=== PATIENT | female | born 1960 | race Caucasian/White ===

== ENCOUNTER 2017-07-28 19:58 | Emergency (ER) | payer MEDICAID | END 2017-07-28 21:11 | disposition left against medical advice (07) | LOC: D.ER 19:58 | DX: R56.9 Unspecified convulsions (principal) ==

== ENCOUNTER 2018-02-07 12:54 | Inpatient (IN) | payer MEDICARE, MEDICAID ==
[~2018-02-07] VITALS: Ht 172.7 cm; Wt 90.9 kg
--- NOTE | ~2018-02-07 | CN ---
PATIENT NAME:DAVID GARDNER MEDICAL RECORD: [id number] : 62 LOCATION:D. D.2111 ADMIT DATE: 02/07/18 ACCOUNT: [id number] CONSULTING PHYSICIAN: SAM SINHA MD REFERRING PHYSICIAN: JUAN VALERIO MD DATE OF CONSULTATION: 02/08/2018 CONSULT REQUESTING PHYSICIAN: Shannan Worthy MD REASON FOR CONSULTATION: Acute exacerbation of COPD, cough, shortness of breath. HISTORY OF PRESENT ILLNESS: Ms. Gardner is a 57-year-old very pleasant lady. She was in her usual state of health 3 days ago. She started fever, coughing, and shortness of breath; were progressively getting worse. She was wheezing. The cough was productive of white-yellow color sputum production. She has fever of 101. The patient was brought into the ER and found out she has pneumonia. REVIEW OF THE SYSTEMS: Mainly in the history of present illness. PAST MEDICAL HISTORY: 1. Seizure disorder. 2. Anxiety and depression. 3. Diabetes mellitus type 2. ALLERGY: No known drug allergy. MEDICATIONS: NuAx was reviewed. PERSONAL AND SOCIAL HISTORY: The patient is a current everyday smoker, almost 15-20 cigarettes a day. She is nondrinker. FAMILY HISTORY: Not known. PHYSICAL EXAMINATION: GENERAL: Now, the patient is lying comfortably in bed. She is not in acute distress. VITAL SIGNS: Her blood pressure is 123/75, pulse is 79, respiration is 17, temperature is 97.7, SpO2 92% on room air. HEENT: Conjunctivae are pink. Sclerae are not icteric. NECK: Neck is supple. No JVD. CHEST: The chest excursion is minimal on both sides. There is prolonged expiration with wheezing. HEART: Rhythm regular. Normal sound. No murmur. ABDOMEN: Abdomen is soft. Bowel sounds present. No hepatosplenomegaly. RECTAL: Deferred. EXTREMITIES: No cyanosis. No clubbing. No pedal edema. CENTRAL NERVOUS SYSTEM: The patient is awake and alert. There is no obvious cranial nerve abnormality. The gait was not tested. IMAGING DATA: CTA of the chest; there is no pulmonary embolism. There is mild enlarged lymph node. There is bilateral infiltrate. LABORATORY DATA: CBC; WBC is 15.9, hemoglobin 13.3, hematocrit 38.2, and the platelet count is 296. Chemistry; sodium 130, potassium 4.7, BUN is 9, CONSULT REPORT [id number] DAVID GARDNER creatinine 0.7. IMPRESSION: 1. Bilateral pneumonia, most likely community-acquired pneumonia. 2. Leukocytosis. 3. Positive D-dimer. 4. Acute exacerbation of COPD. 5. Seizure disorder. 6. Tobacco dependence syndrome. 7. Mediastinal lymphadenopathy. RECOMMENDATION: 1. Continue Levaquin IV. I will add Rocephin. 2. Methylprednisolone IV. We will slowly taper it off. 3. Start Brovana and budesonide nebulizer. 4. Albuterol and ipratropium nebulizer. 5. Mucinex DM two tablets b.i.d. 6. Followup chest radiograph and labs. The patient was counseled to quit smoking. 7. The patient will require followup CT scan of the chest after 2-3 months to ensure resolution of pneumonia as well as lymphadenopathy. Dr. Worthy, thank you for involving me in the care of Ms. Gardner. TRANSINT:[id number] Voice Confirmation ID: [id number] DOCUMENT ID: [id number] SAM SINHA MD at 1110 CC: SHANNAN WORTHY [id number] DICTATION DATE: 02/08/18 170 GRINDING AND POLISHING LABORER: 02/08/18 1830 DIS IN 02/10/18 [address] [place] [address]
[2018-02-07] MEDS ORDERED: GABAPENTIN100 MG (13:18)
[2018-02-07] MEDS ORDERED: RIOMET500 MG/5 M (13:19)
[2018-02-07 13:54] LABS: BASOPHILS 0.2 % (0-2); EOSINOPHILS 0.3 % (0-7); HEMATOCRIT 38.2 % (36.0-48.0); HEMOGLOBIN 13.3 g/dL (12-16); IMMATURE GRANULOCYTES 0.3 % (0-5); LYMPHOCYTES 13.9 % (15-50); MCH 32.6 pg (26.0-34.0); MCHC 34.8 g/dL (31.0-37.0); MCV 93.6 fL (80.0-100.0); MEAN PLATELET VOLUME 8.9 fL (7.4-10.4); MONOCYTES 9.8 % (2-11); NEUTROPHILS 75.5 % (40-80); PLATELET COUNT 296 10x3/uL (130-400); RBC 4.08 10x6/uL (4.00-5.40); RDW 14.1 % (11.5-14.5); WBC 15.9 10x3/uL (4.8-10.8)
[2018-02-07 14:27] LABS: APPEARANCE CLEAR (CLEAR); BILIRUBIN NEGATIVE (NEGATIVE); COLOR YELLOW (YELLOW); GLUCOSE NEGATIVE (NEGATIVE); KETONE NEGATIVE (NEGATIVE); NITRITE NEGATIVE (NEGATIVE); PROTEIN NEGATIVE (NEGATIVE); SPECIFIC GRAVITY 1.015 (1.005-1.020); UROBILINOGEN NORMAL (NORMAL)
[2018-02-07 14:30] LABS: ALBUMIN 3.6 g/dL (3.4-5.0); ALKALINE PHOSPHATASE 93 U/L (46-116); ALT (SGPT) 26 U/L (10-68); BILIRUBIN - TOTAL 0.47 mg/dL (0.2-1.3); CALC OSMOLALITY 265 mosm/kg (275-300); CALCIUM 8.8 mg/dL (8.5-10.1); CARBON DIOXIDE 30.4 mmol/L (21.0-32.0); CHLORIDE - SERUM 93 mmol/L (98-107); CREATININE - SERUM 0.8 mg/dL (0.6-1.3); GLUCOSE 137 mg/dL (74-106); POTASSIUM - SERUM 4.3 mmol/L (3.5-5.1); PROTEIN - SERUM 8.1 g/dL (6.4-8.2); SODIUM 132 mmol/L (136-145); UREA NITROGEN 9 mg/dL (7-18); eGFR NON AFRICAN AMERICAN 78 mL/min (90-120)
[2018-02-07 15:20] LABS: PRO BNP 41 pg/mL (0-125)
[2018-02-07 15:24] LABS: TROPONIN-I < 0.017 ng/mL (0.000-0.060)
[2018-02-07] MEDS ORDERED: ATIVAN2 MG PO (19:38)
[2018-02-07] MEDS ORDERED: HYDROCODONE-APA1 TAB PO (19:38)
[2018-02-07] MEDS ORDERED: ZANAFLEX4 MG PO (19:39)
[2018-02-07] MEDS ORDERED: GLUCOPHAGE1000 MG PO (19:39)
[2018-02-07] MEDS ORDERED: PRAVACHOL40 MG PO (19:40)
[2018-02-07] MEDS ORDERED: NEURONTIN600 MG PO (19:40)
[2018-02-07] MEDS ORDERED: AMITRIPTYLINE150 MG PO (19:40)
[2018-02-07 22:11] VITALS: BP 126/70
[2018-02-08 00:41] VITALS: BP 112/70
[2018-02-08 03:28] LABS: BASOPHILS 0.1 % (0-2); EOSINOPHILS 0 % (0-7); HEMATOCRIT 35.4 % (36.0-48.0); HEMOGLOBIN 12.2 g/dL (12-16); IMMATURE GRANULOCYTES 0.3 % (0-5); LYMPHOCYTES 8.8 % (15-50); MCH 31.9 pg (26.0-34.0); MCHC 34.5 g/dL (31.0-37.0); MCV 92.7 fL (80.0-100.0); MEAN PLATELET VOLUME 8.8 fL (7.4-10.4); NEUTROPHILS 86.8 % (40-80); PLATELET COUNT 288 10x3/uL (130-400); RBC 3.82 10x6/uL (4.00-5.40); RDW 13.7 % (11.5-14.5)
[2018-02-08 03:56] LABS: WBC 11.3 10x3/uL (4.8-10.8)
[2018-02-08 04:07] LABS: CALC OSMOLALITY 265 mosm/kg (275-300); CALCIUM 8.9 mg/dL (8.5-10.1); CARBON DIOXIDE 27.1 mmol/L (21.0-32.0); CHLORIDE - SERUM 97 mmol/L (98-107); CREATININE - SERUM 0.7 mg/dL (0.6-1.3); POTASSIUM - SERUM 4.7 mmol/L (3.5-5.1); SODIUM 130 mmol/L (136-145); UREA NITROGEN 9 mg/dL (7-18); eGFR NON AFRICAN AMERICAN > 90 mL/min (90-120)
[2018-02-08 04:12] LABS: GLUCOSE 212 mg/dL (74-106)
[2018-02-08 05:34] VITALS: BP 112/76
[2018-02-08 07:56] VITALS: BP 117/78
[2018-02-08 10:36] VITALS: BP 123/75
[2018-02-08] MEDS ORDERED: LAMICTAL100 MG PO ×2 (12:23→12:24)
[2018-02-08 12:28] VITALS: Ht 172.7 cm; Wt 90.9 kg
[2018-02-08 15:18] VITALS: BP 128/68
[2018-02-08 20:00] VITALS: BP 112/71
[2018-02-09 04:00] VITALS: BP 118/77
[2018-02-09 07:50] LABS: BASOPHILS 0.1 % (0-2); EOSINOPHILS 0 % (0-7); HEMATOCRIT 33.1 % (36.0-48.0); HEMOGLOBIN 11.4 g/dL (12-16); IMMATURE GRANULOCYTES 0.4 % (0-5); LYMPHOCYTES 9.3 % (15-50); MCH 31.7 pg (26.0-34.0); MCHC 34.4 g/dL (31.0-37.0); MCV 91.9 fL (80.0-100.0); NEUTROPHILS 86.2 % (40-80); RDW 13.8 % (11.5-14.5)
[2018-02-09 07:51] LABS: PLATELET COUNT 409 10x3/uL (130-400); WBC 16.3 10x3/uL (4.8-10.8)
[2018-02-09 08:10] LABS: ALBUMIN 2.9 g/dL (3.4-5.0); ALKALINE PHOSPHATASE 72 U/L (46-116); BILIRUBIN - TOTAL 0.24 mg/dL (0.2-1.3); CALC OSMOLALITY 264 mosm/kg (275-300); CALCIUM 8.8 mg/dL (8.5-10.1); CARBON DIOXIDE 28.1 mmol/L (21.0-32.0); CHLORIDE - SERUM 98 mmol/L (98-107); CREATININE - SERUM 0.7 mg/dL (0.6-1.3); GLUCOSE 185 mg/dL (74-106); POTASSIUM - SERUM 4.8 mmol/L (3.5-5.1); PROTEIN - SERUM 6.9 g/dL (6.4-8.2); SODIUM 130 mmol/L (136-145); UREA NITROGEN 9 mg/dL (7-18); eGFR NON AFRICAN AMERICAN > 90 mL/min (90-120)
[2018-02-09 08:11] LABS: ALT (SGPT) 35 U/L (10-68)
[2018-02-09 08:34] VITALS: BP 134/77
[2018-02-09 12:38] VITALS: BP 117/69
[2018-02-09 20:00] VITALS: BP 123/64
[2018-02-10] VITALS: BP 113/70
[2018-02-10 04:00] VITALS: BP 148/97
[2018-02-10 06:36] LABS: BASOPHILS 0.2 % (0-2); EOSINOPHILS 0 % (0-7); HEMATOCRIT 33.9 % (36.0-48.0); HEMOGLOBIN 11.6 g/dL (12-16); LYMPHOCYTES 11.3 % (15-50); MCH 31.8 pg (26.0-34.0); MCHC 34.2 g/dL (31.0-37.0); MCV 92.9 fL (80.0-100.0); MEAN PLATELET VOLUME 9.2 fL (7.4-10.4); MONOCYTES 7.6 % (2-11); NEUTROPHILS 79.9 % (40-80); PLATELET COUNT 442 10x3/uL (130-400); RBC 3.65 10x6/uL (4.00-5.40); RDW 13.9 % (11.5-14.5); WBC 16.5 10x3/uL (4.8-10.8)
[2018-02-10 07:28] LABS: ALBUMIN 2.8 g/dL (3.4-5.0); ALKALINE PHOSPHATASE 70 U/L (46-116); BILIRUBIN - TOTAL 0.17 mg/dL (0.2-1.3); CALCIUM 8.6 mg/dL (8.5-10.1); CARBON DIOXIDE 28.4 mmol/L (21.0-32.0); CHLORIDE - SERUM 99 mmol/L (98-107); CREATININE - SERUM 0.8 mg/dL (0.6-1.3); GLUCOSE 224 mg/dL (74-106); PROTEIN - SERUM 6.5 g/dL (6.4-8.2); SODIUM 133 mmol/L (136-145); eGFR NON AFRICAN AMERICAN 78 mL/min (90-120)
[2018-02-10 07:30] LABS: ALT (SGPT) 62 U/L (10-68); CALC OSMOLALITY 273 mosm/kg (275-300); UREA NITROGEN 16 mg/dL (7-18)
[2018-02-10 08:36] VITALS: BP 137/72
[2018-02-10] MEDS ORDERED: LEVAQUIN750 MG PO (15:12)
[2018-02-10] MEDS ORDERED: PREDNISONE10 MG PO (15:14)
== END 2018-02-10 17:53 | disposition home or self-care (01) | DRG 190 ==
LOC: D.ER 12:54 → D.EDHOLD 17:30 → D.M2 17:30
PROVIDERS: Family Medicine
DX: J44.0 Chronic obstructive pulmonary disease with (acute) lower respiratory infection (principal); J18.9 Pneumonia, unspecified organism; F17.213 Nicotine dependence, cigarettes, with withdrawal; J44.1 Chronic obstructive pulmonary disease with (acute) exacerbation; E11.65 Type 2 diabetes mellitus with hyperglycemia; F41.8 Other specified anxiety disorders; G40.909 Epilepsy, unspecified, not intractable, without status epilepticus

== ENCOUNTER → 2018-09-20 15:06 | Outpatient (CLI) | payer MEDICARE, MEDICAID ==
[2018-02-08 12:28] VITALS: BMI 30.9
[~2018-09-20 15:06] MED LIST: AMITRIPTYLINE150 MG PO; ATIVAN2 MG PO; GABAPENTIN100 MG; GLUCOPHAGE1000 MG PO; HYDROCODONE-APA1 TAB PO; LAMICTAL100 MG PO; LEVAQUIN750 MG PO; NEURONTIN600 MG PO; PRAVACHOL40 MG PO; PREDNISONE10 MG PO; RIOMET500 MG/5 M; ZANAFLEX4 MG PO
== END | disposition home or self-care (01) ==
LOC: D.CT 09-17 10:30 → D.RT 09-17 11:00
PROVIDERS: ATTEND Internal Medicine Pulmonary Disease
DX: R59.0 Localized enlarged lymph nodes (principal); J44.9 Chronic obstructive pulmonary disease, unspecified

== ENCOUNTER 2019-04-03 14:13 | Emergency (ER) | payer MEDICARE, MEDICAID ==
[~2019-04-03] VITALS: Ht 172.7 cm; Wt 95.5 kg
[2019-04-03 14:15] VITALS: Ht 172.7 cm; Wt 95.5 kg
[2019-04-03 14:35] LABS: APPEARANCE CLEAR (CLEAR); BILIRUBIN NEGATIVE (NEGATIVE); COLOR YELLOW (YELLOW); GLUCOSE NEGATIVE (NEGATIVE); KETONE NEGATIVE (NEGATIVE); NITRITE NEGATIVE (NEGATIVE); PROTEIN NEGATIVE (NEGATIVE); SPECIFIC GRAVITY 1.015 (1.005-1.020); UROBILINOGEN NORMAL (NORMAL)
[2019-04-03 14:37] LABS: BASOPHILS 0.3 % (0-2); HEMATOCRIT 38.5 % (36.0-48.0); HEMOGLOBIN 14.3 g/dL (12-16); IMMATURE GRANULOCYTES 0.1 % (0-5); LYMPHOCYTES 46.8 % (15-50); MCH 32.5 pg (26.0-34.0); MCHC 37.1 g/dL (31.0-37.0); MCV 87.5 fL (80.0-100.0); MEAN PLATELET VOLUME 8.1 fL (7.4-10.4); MONOCYTES 7.4 % (2-11); NEUTROPHILS 43.4 % (40-80); RDW 12.8 % (11.5-14.5); WBC 7.5 10x3/uL (4.8-10.8)
[2019-04-03 14:38] LABS: PLATELET COUNT 315 10x3/uL (130-400)
[2019-04-03 15:01] LABS: ALBUMIN 3.5 g/dL (3.4-5.0); ALKALINE PHOSPHATASE 85 U/L (46-116); ALT (SGPT) 28 U/L (10-68); CALC OSMOLALITY 242 mosm/kg (275-300); CARBON DIOXIDE 25.3 mmol/L (21.0-32.0); CHLORIDE - SERUM 90 mmol/L (98-107); CREATININE - SERUM 0.6 mg/dL (0.6-1.3); PROTEIN - SERUM 6.3 g/dL (6.4-8.2); SODIUM 122 mmol/L (136-145); UREA NITROGEN 3 mg/dL (7-18); eGFR NON AFRICAN AMERICAN > 90 mL/min (90-120)
[2019-04-03 15:02] LABS: GLUCOSE 97 mg/dL (74-106)
[2019-04-03 15:05] LABS: LIPASE 105 U/L (73-393)
[2019-04-03 15:07] LABS: TROPONIN-I < 0.017 ng/mL (0.000-0.060)
[2019-04-03] MEDS ORDERED: MOVANTIK25 MG PO (15:21)
[2019-04-03 16:18] VITALS: BP 126/72
== END 2019-04-03 16:18 | disposition home or self-care (01) ==
LOC: D.ER 14:13
PROVIDERS: Emergency Medicine
DX: K59.03 Drug induced constipation (principal)

== ENCOUNTER 2019-04-07 11:47 | Emergency (ER) | payer MEDICARE, MEDICAID ==
[~2019-04-07] VITALS: Ht 172.7 cm; Wt 95.5 kg
[~2019-04-07 11:47] MED LIST changes: +MOVANTIK25 MG PO
[2019-04-07 11:50] VITALS: Ht 172.7 cm; Wt 95.5 kg
[2019-04-07 13:19] LABS: BASOPHILS 0.3 % (0-2); EOSINOPHILS 0.8 % (0-7); HEMOGLOBIN 14.7 g/dL (12-16); IMMATURE GRANULOCYTES 0.2 % (0-5); LYMPHOCYTES 31.8 % (15-50); MCH 33.1 pg (26.0-34.0); MCHC 37.7 g/dL (31.0-37.0); MCV 87.8 fL (80.0-100.0); MEAN PLATELET VOLUME 8.3 fL (7.4-10.4); MONOCYTES 5.6 % (2-11); NEUTROPHILS 61.3 % (40-80); PLATELET COUNT 360 10x3/uL (130-400); RBC 4.44 10x6/uL (4.00-5.40); RDW 13.3 % (11.5-14.5); WBC 10.6 10x3/uL (4.8-10.8)
[2019-04-07 13:26] LABS: KETONE - SERUM NEGATIVE (NEGATIVE)
[2019-04-07 13:39] LABS: APPEARANCE CLEAR (CLEAR); BILIRUBIN NEGATIVE (NEGATIVE); COLOR YELLOW (YELLOW); GLUCOSE NEGATIVE (NEGATIVE); KETONE NEGATIVE (NEGATIVE); NITRITE NEGATIVE (NEGATIVE); PROTEIN NEGATIVE (NEGATIVE); UROBILINOGEN NORMAL (NORMAL)
[2019-04-07 13:45] LABS: ALBUMIN 3.6 g/dL (3.4-5.0); ALKALINE PHOSPHATASE 85 U/L (46-116); ALT (SGPT) 30 U/L (10-68); BILIRUBIN - TOTAL 0.33 mg/dL (0.2-1.3); CALC OSMOLALITY 267 mosm/kg (275-300); CALCIUM 9.2 mg/dL (8.5-10.1); CARBON DIOXIDE 26.2 mmol/L (21.0-32.0); CHLORIDE - SERUM 98 mmol/L (98-107); CREATININE - SERUM 0.7 mg/dL (0.6-1.3); LIPASE 122 U/L (73-393); POTASSIUM - SERUM 4.5 mmol/L (3.5-5.1); PROTEIN - SERUM 6.4 g/dL (6.4-8.2); SODIUM 133 mmol/L (136-145); UREA NITROGEN 10 mg/dL (7-18); eGFR NON AFRICAN AMERICAN > 90 mL/min (90-120)
[2019-04-07 13:46] LABS: GLUCOSE 155 mg/dL (74-106)
[2019-04-07] MEDS ORDERED: TORADOL10 MG PO (15:48)
[2019-04-07 16:16] VITALS: BP 126/84
== END 2019-04-07 16:20 | disposition home or self-care (01) ==
LOC: D.ER 11:47
PROVIDERS: Emergency Medicine
DX: E87.1 Hypo-osmolality and hyponatremia (principal); R10.9 Unspecified abdominal pain; K59.03 Drug induced constipation; N20.0 Calculus of kidney; F17.200 Nicotine dependence, unspecified, uncomplicated; E11.9 Type 2 diabetes mellitus without complications

== ENCOUNTER 2019-04-09 18:23 | Inpatient (IN) | payer MEDICARE, MEDICAID ==
[~2019-04-09] VITALS: Ht 172.7 cm; Wt 95.5 kg
[~2019-04-09 18:23] MED LIST changes: +TORADOL10 MG PO
--- NOTE | 2019-04-09 19:22 | NUR ---
RECIEVED BEDSIDE REPORT. UP IN BED WITH EYES OPEN AND TV ON. ALERT AND ORIENTED X4. IV TO LEFT HAND WITH NS INFUSING AT 75CC/HR. UP AD RYLEE TO B/R. REMAINS ON 1200CC FLUID RESTRICTION. SODIUM WNL AT THIS TIME. DENIES ANY NEEDS AT THIS TIME..
[2019-04-09 19:28] LABS: BASOPHILS 0.1 % (0-2); EOSINOPHILS 0.5 % (0-7); HEMATOCRIT 35.2 % (36.0-48.0); HEMOGLOBIN 13.5 g/dL (12-16); IMMATURE GRANULOCYTES 0.1 % (0-5); LYMPHOCYTES 37.5 % (15-50); MCH 32.8 pg (26.0-34.0); MCHC 38.4 g/dL (31.0-37.0); MCV 85.6 fL (80.0-100.0); MEAN PLATELET VOLUME 8.2 fL (7.4-10.4); MONOCYTES 6.3 % (2-11); NEUTROPHILS 55.5 % (40-80); PLATELET COUNT 302 10x3/uL (130-400); RBC 4.11 10x6/uL (4.00-5.40); RDW 12.6 % (11.5-14.5); WBC 8.4 10x3/uL (4.8-10.8)
[2019-04-09 19:37] LABS: ALBUMIN 3.5 g/dL (3.4-5.0); ALKALINE PHOSPHATASE 74 U/L (46-116); ALT (SGPT) 26 U/L (10-68); BILIRUBIN - TOTAL 0.53 mg/dL (0.2-1.3); C-REACTIVE PROTEIN < 0.2 mg/dL (0.0-0.9); CALC OSMOLALITY 247 mosm/kg (275-300); CALCIUM 8.1 mg/dL (8.5-10.1); CARBON DIOXIDE 24.2 mmol/L (21.0-32.0); CHLORIDE - SERUM 90 mmol/L (98-107); CREATININE - SERUM 0.5 mg/dL (0.6-1.3); GLUCOSE 121 mg/dL (74-106); POTASSIUM - SERUM 3.9 mmol/L (3.5-5.1); PROTEIN - SERUM 5.9 g/dL (6.4-8.2); SODIUM 124 mmol/L (136-145); UREA NITROGEN 5 mg/dL (7-18); eGFR NON AFRICAN AMERICAN > 90 mL/min (90-120)
[2019-04-09 20:23] LABS: CKMB 0.4 U/L (0.0-3.6); CREATINE KINASE 49 UL (21-215); TROPONIN-I 0.017 ng/mL (0.000-0.060)
[2019-04-09 21:45] LABS: APPEARANCE CLEAR (CLEAR); BILIRUBIN NEGATIVE (NEGATIVE); COLOR STRAW (YELLOW); GLUCOSE NEGATIVE (NEGATIVE); KETONE NEGATIVE (NEGATIVE); NITRITE NEGATIVE (NEGATIVE); PROTEIN NEGATIVE (NEGATIVE); SPECIFIC GRAVITY 1.005 (1.005-1.020); UROBILINOGEN NORMAL (NORMAL)
[2019-04-09 21:53] LABS: UDS - AMPHET NEGATIVE QUAL (NEGATIVE); UDS - BARB NEGATIVE QUAL (NEGATIVE); UDS - BENZO NEGATIVE QUAL (NEGATIVE); UDS - COCAINE NEGATIVE QUAL (NEGATIVE); UDS - OPIATE POSITIVE QUAL (NEGATIVE); UDS - PCP NEGATIVE QUAL (NEGATIVE); UDS - THC NEGATIVE QUAL (NEGATIVE)
[2019-04-09 23:22] VITALS: BP 164/99; BMI 32.0
--- NOTE | 2019-04-09 23:36 | NUR ---
RECIEVED REPORT FROM THIAGO ZAIDI IN ER AT 972. ARRIVED TO FLOOR IN W/C ACCOMPANIED BY STAFF AT 7757.ALERT AND ORIENTED X4. UP AD RYLEE TO B/R. LUNG SOUNDS CLEAR BILATERALLY, ABSX4. HR REGULAR RHYTHM. DENIES ANY PAIN AT THIS TIME. WILL CONT. POC
[2019-04-10 04:00] VITALS: BP 143/73; BP 158/94
[2019-04-10 04:55] LABS: HEMATOCRIT 37.2 % (36.0-48.0); HEMOGLOBIN 13.8 g/dL (12-16); MCH 32.2 pg (26.0-34.0); MCHC 37.1 g/dL (31.0-37.0); MCV 86.7 fL (80.0-100.0); MEAN PLATELET VOLUME 8.3 fL (7.4-10.4); PLATELET COUNT 293 10x3/uL (130-400); RBC 4.29 10x6/uL (4.00-5.40); RDW 12.7 % (11.5-14.5)
[2019-04-10 05:02] LABS: WBC 5.6 10x3/uL (4.8-10.8)
[2019-04-10 05:04] LABS: CALC OSMOLALITY 270 mosm/kg (275-300); CALCIUM 8.2 mg/dL (8.5-10.1); CARBON DIOXIDE 28.2 mmol/L (21.0-32.0); CHLORIDE - SERUM 103 mmol/L (98-107); CREATININE - SERUM 0.5 mg/dL (0.6-1.3); GLUCOSE 96 mg/dL (74-106); POTASSIUM - SERUM 3.9 mmol/L (3.5-5.1); SODIUM 137 mmol/L (136-145); UREA NITROGEN 4 mg/dL (7-18); eGFR NON AFRICAN AMERICAN > 90 mL/min (90-120)
--- NOTE | 2019-04-10 07:00 | NUR ---
RECEIVED REPORT. ASSUMED CARE OF PATIENT. CALL LIGHT WITHIN REACH. IV FLUIDS INFUSING ORDERED. NO DISTRESS. PATIENT LETTING THIS NURSE KNOW THAT AT 0810 HER PAIN MEDICATION IS AVAILABLE AND SHE WOULD LIKE IT. ASKED PATIENT TO REMIND THIS NURSE CLOSER TO 0800 IT IS STILL AN HOUR AWAY AND SHE MAY NOT NEED IT. PATIENT STATES SHE WILL NEED IT. NO DISTRESS.
[2019-04-10 07:32] LABS: LYMPHOCYTES 46 % (15-50); MONOCYTES 8 % (2-11); NEUTROPHILS 45 % (40-80); PLATELET ESTIMATE NORMAL; PLATELET MORPHOLOGY GIANT PLTS PRESENT
[2019-04-10 08:00] VITALS: BP 160/93
--- NOTE | 2019-04-10 08:20 | NUR ---
MEDICATED FOR PAIN AT THIS TIME. NO DISTRESS. PATIENT SITTING UP IN BED. IV FLUIDS INFUSING ORDERED.
--- NOTE | 2019-04-10 08:33 | NUR ---
UPON REVIEWING B/P SINCE ADMISSION THIS NURSE NOTIFIED CHRIS MUNSON WITH NEW ORDER FOR CLONIDINE0.1 X ONE NOW AND COZZAR 50MG QD. NOTIFIED PT OF NEW ORDERS AND POSSIBLE SIDE EFFECTS. WILL RECHECK B/P'S.
--- NOTE | 2019-04-10 09:40 | NUR ---
RECEIVED REPORT FROM EBONI IN ER. PATIENT TO UNIT SOON.
--- NOTE | 2019-04-10 10:54 | NUR ---
URINE COLLECTED AND SENT TO LAB FOR URINE SODIUM
--- NOTE | 2019-04-10 11:19 | NUR ---
MEDICATED FOR PAIN AT THIS TIME. NO DISTRESS.
--- NOTE | 2019-04-10 12:52 | NUR ---
PATIENT COMPLAIN OF SEVERE HEADACHE. MEDICATED FOR HEADACHE AT THIS TIME.
[2019-04-10 13:47] VITALS: BP 176/95
--- NOTE | 2019-04-10 14:55 | NUR ---
MEDICATED FOR PAIN AND NAUSEA AT THIS TIME. NO DISTRESS.
[2019-04-10 17:13] VITALS: BP 163/104
--- NOTE | 2019-04-10 18:24 | NUR ---
MEDICATED FOR PAIN AT THIS TIME. NO DISTRESS. CALL LIGHT WITHIN REACH.
--- NOTE | 2019-04-10 19:22 | NUR ---
RECIEVED BEDSIDE REPORT. UP IN BED WITH EYES OPEN AND TV ON. ALERT AND ORIENTED X4. IV TO LEFT HAND WITH NS INFUSING AT 75CC/HR. NO REDNESS OR SWELLING TO SITE. DSG CDI. REMAINS ON 1200CC FLUID RESTRICTION. SODIUM WNL AT THIS TIME. DENIES ANY NEEDS. WILL CONT POC.
[2019-04-10 20:00] VITALS: BP 159/97
[2019-04-11] VITALS (7 sets, daily range): BP systolic 136–156; BP diastolic 79–90; Ht 172.7 cm; Wt 95.5 kg
[2019-04-11 05:02] LABS: BASOPHILS 0.3 % (0-2); EOSINOPHILS 1.4 % (0-7); HEMATOCRIT 34.7 % (36.0-48.0); HEMOGLOBIN 12.4 g/dL (12-16); LYMPHOCYTES 41.5 % (15-50); MCH 31.8 pg (26.0-34.0); MCHC 35.7 g/dL (31.0-37.0); MEAN PLATELET VOLUME 8.2 fL (7.4-10.4); NEUTROPHILS 46.8 % (40-80); PLATELET COUNT 288 10x3/uL (130-400); RDW 13.3 % (11.5-14.5); WBC 6.4 10x3/uL (4.8-10.8)
[2019-04-11 05:29] LABS: CALC OSMOLALITY 277 mosm/kg (275-300); CALCIUM 8.4 mg/dL (8.5-10.1); CARBON DIOXIDE 28.8 mmol/L (21.0-32.0); CHLORIDE - SERUM 106 mmol/L (98-107); CREATININE - SERUM 0.5 mg/dL (0.6-1.3); GLUCOSE 120 mg/dL (74-106); SODIUM 140 mmol/L (136-145); eGFR NON AFRICAN AMERICAN > 90 mL/min (90-120)
[2019-04-11 05:36] LABS: UREA NITROGEN 6 mg/dL (7-18)
--- NOTE | 2019-04-11 07:55 | NUR ---
REPORT RECIEVED. PT HAS A L HAND PIV INFUSING NS @75. SHE IS ON A FLUID RES OF 1200ML/DAY. RR EVEN AND UNLABORED. A&O. BED LOCKED AND IN LOWEST POSITION, CALL LIGHT WITHIN REACH. WILL CTM
--- NOTE | 2019-04-11 13:08 | NUR ---
I have reviewed this patient and I concur with the Shift Assessment completed by the Licensed Practical Nurse today this shift.
--- NOTE | 2019-04-11 13:39 | NUR ---
FAXED REFERRAL FORM TO [facility] PER PT REQUEST
--- NOTE | 2019-04-11 20:00 | NUR ---
ALERT RESTING IN BED C/O CHRONIC BACK PAIN, REQUESTING PAIN MEDICATION, GIVEN ORDERED, SEE SHIFT ASSESSMENT CALL LIGHT IN REACH
--- NOTE | 2019-04-11 20:00 | NUR ---
ALERT CONFUSED, FIGITING WITH BLANKET ON BED AND HURST CATH, DENIES PAIN, RESP UNLABORED WITH 02 IN USE VIA N/C, SEE SHIFT ASSESSMENT, CALL LIGHT IN REACH
[2019-04-12 04:00] VITALS: BP 137/76
--- NOTE | 2019-04-12 07:38 | NUR ---
A/A/OX4. C/O PAIN IN LOWER BACK AND ABDOMEN. GIVEN PAIN MED ORDERED. NO OTHER REQUESTS AND WILL CONTINUE POC. ASSESSMENT COMPLETED. IV PATENT TO LEFT HAND WITHOUT REDNESS OR EDEMA.
[2019-04-12 08:00] VITALS: BP 136/88
--- NOTE | 2019-04-12 11:26 | MORECARE ---
CASE MANAGEMENT DISCHARGE SUMMARY PATIENT: DAVID GONZALES UNIT: [id number] ADM DATE: 04/09/19 AGE: 58 : 62 SEX: F ROOM/BED: D.3106 AUTHOR: SERVANDO,DOC PHYSICIAN: REFERRING PHYSICIAN: MIRYAM SAMS MD DATE OF SERVICE: 04/12/19 Discharge Plan Patient Name: DAVID GONZALES Facility: [facility]:[place] : 1960 Planned Disposition: Home Anticipated Discharge Date: 04/12/19 Discharge Date: Expected LOS: 3 Initial Reviewer: [email or web address] Initial Review Date: 04/12/2019 Generated: 04/12/19 12:26 pm Comments DCP- Discharge Planning Updated by [email or web address]: Rafi Naidu on 04/12/19 10:[address] Patient Name: DAVID GONZALES Admission Status: ER Accout number: [id number] Admission Date: 04-09-2019 : 1960 Admission Diagnosis: Attending: MIRYAM SAMS Current LOS: 3 Anticipated DC Date: 04-12-2019 Planned Disposition: Home Primary Insurance: [employer] ADV Discharge Planning Comments: CM RECEIVED DISCHARGE ORDER, MET WITH PT IN ROOM TO DISCUSS DISCHARGE PLANNING AND NEEDS. PT REPORTS LIVING AT HOME INDEPENDENTLY WITH HIS PATRICE. PT HAS NO MEDICAL EQUIPMENT AND NO OUTSIDE SERVICES ASSISTING IN THE HOME. CM DISCUSSED AVAILABILITY OF HOME HEALTH, REHAB SERVICES AND MEDICAL EQUIPMENT. PT DENIES DISCHARGE NEEDS, REPORTS HER FIANCE WILL PICK HER UP FOR DISCHARGE HOME. IMPORTANT MESSAGE FROM MEDICARE PROVIDED AND EXPLAINED. MACHINE ADJUSTER LEADER NURSE NOTIFIED. Cross Cut Saw Operator: Rafi Naidu DCPIA - Discharge Planning Initial Assessment Updated by [email or web address]: Rafi Naidu on 04/12/19 11:21 am * Is the patient Alert and Oriented? Yes * How many steps to enter\exit or inside your home? * PCP LOU FERRARI * Pharmacy [facility] IN [place] * Preadmission Environment Home with Family * ADLs Independent * Equipment None * Other Equipment NO MEDICAL EQUIPMENT PROVIDER PREFERENCE * List name and contact numbers for known caregivers / representatives who currently or will assist patient after discharge: PATRICE VINCENT, * Verbal permission to speak to the caregivers and representatives has been obtained from the patient. N/A * Community resources currently utilized None * Please name any agencies selected above. NONE * Additional services required to return to the preadmission environment? No * Can the patient safely return to the preadmission environment? Yes * Has this patient been hospitalized within the prior 30 days at any hospital? No Coverage Notice Reviewer: [email or web address] Rayne Naidu Notice Issued Date-Time: 04/12/2019 11:15 Notice Type: IM Discharge Notice Notice Delivered To: Patient Relationship to Patient: Silk Trimmer Name: Delivery Method: HAND - Hand Delivered Donita Days: Prior Verbal Notification: Recipient Understood Notice: Yes Recipient Signature: Yes Med Rec Note Co-signed by Attending: Coverage Notice Comment: Patient Name: DAVID GONZALES Page [phone] at 1126 All edits/amendments must be made on the electronic document DICTATION DATE: 04/12/191125 WAX ENGRAVER: ARNALDO 04/12/19 1126 RPT#: [id number] DC DATE: STATUS: ADM IN [facility] [address] [place] [address] END OF REPORT
--- NOTE | 2019-04-12 12:09 | NUR ---
DISCHARGE INSTRUCTIONS REVIEWED WITH PT AND VERBALIZES UNDERSTANDING WITH NO QUESTIONS. IV DC'D AND CATH TIP IS INTACT. LEFT FLOOR VIA W/C WITH ALL PERSONAL BELONGINGS AND LEFT FACILITY VIA PRIVATE VEHICLE WITH HER .
== END 2019-04-12 12:10 | disposition home or self-care (01) | DRG 641 ==
LOC: D.ER 18:23 → D.M2 20:55
PROVIDERS: Emergency Medicine; Family Medicine; ADMIT Legal Medicine; ATTEND Legal Medicine
DX: E87.1 Hypo-osmolality and hyponatremia (principal); N20.0 Calculus of kidney; I10 Essential (primary) hypertension; K57.30 Diverticulosis of large intestine without perforation or abscess without bleeding; M51.36 Other intervertebral disc degeneration, lumbar region; M41.9 Scoliosis, unspecified; N32.89 Other specified disorders of bladder; K59.03 Drug induced constipation; T40.2X5A Adverse effect of other opioids, initial encounter; E11.65 Type 2 diabetes mellitus with hyperglycemia

== ENCOUNTER 2019-04-21 09:12 | Day surgery (SDC) | payer MEDICARE, MEDICAID ==
[~2019-04-21] VITALS: Ht 175.3 cm; Wt 99.8 kg
[2019-04-21 09:45] LABS: HEMATOCRIT 44.8 % (36.0-48.0); HEMOGLOBIN 16.1 g/dL (12-16); MCH 33.3 pg (26.0-34.0); MCHC 35.9 g/dL (31.0-37.0); MCV 92.8 fL (80.0-100.0); MEAN PLATELET VOLUME 8.7 fL (7.4-10.4); RBC 4.83 10x6/uL (4.00-5.40); RDW 13.6 % (11.5-14.5); WBC 7.3 10x3/uL (4.8-10.8)
[2019-04-21 10:09] LABS: CALC OSMOLALITY 271 mosm/kg (275-300); CALCIUM 9.2 mg/dL (8.5-10.1); CHLORIDE - SERUM 101 mmol/L (98-107); CREATININE - SERUM 0.8 mg/dL (0.6-1.3); GLUCOSE 106 mg/dL (74-106); POTASSIUM - SERUM 4.9 mmol/L (3.5-5.1); SODIUM 137 mmol/L (136-145); UREA NITROGEN 7 mg/dL (7-18); eGFR NON AFRICAN AMERICAN 78 mL/min (90-120)
[2019-04-21 10:39] VITALS: BP 122/86; Ht 175.3 cm; Wt 99.8 kg
--- NOTE | 2019-04-22 10:30 | OP ---
PATIENT NAME: DAVID GONZALES MEDICAL RECORD: [id number] :62 LOCATION:D.OPS ADMISSION DATE: SURGEON: TITUS LOPEZ MD DATE OF OPERATION: 04/21/2019 SURGEON: Titus Lopez MD ANESTHESIA: General anesthesia by Yogesh Meza CRNA. DIAGNOSIS: Left 4 mm mid pole renal stone. PROCEDURE: Left ESWL times 3000 shocks. FINDINGS: Radiodense left mid pole stone. BLOOD LOSS: None. CLINICAL HISTORY: This is a 58-year-old female, who has left flank pain. Imaging revealed a 4-mm left-sided renal stone. She comes today to have this treated with lithotripsy. Due to the stone being only 4 mm in size, I decided not to place a left ureteral stent. She was given [employer] electric gas appliances demonstrator to the OR. DESCRIPTION OF PROCEDURE: The patient was given induction of general anesthesia in supine position on the treatment table. The stone was visible as a radiodensity. It was targeted in 2 planes. 3000 shocks were given to the stone. It is rather hard and it took the full 3000 shocks to fully break it up. I will see the patient in followup in 2 weeks' time with a KUB to check on the clearance of the stone. TRANSINT:[id number] Voice Confirmation ID: [id number] DOCUMENT ID: [id number] TITUS LOPEZ MD at 1030 CC: [id number] DICTATION DATE: 04/21/19 1731 ACCOUNT SERVICE ASSOCIATE: 04/22/19 0102 [facility] 04/21/19 [id number] [place] [address]
== END 2019-04-21 19:20 | disposition home or self-care (01) ==
LOC: D.OPS 09:12 → D.PAN 11:45 → D.OPS 11:45
PROVIDERS: Anesthesiology; ATTEND Urology
DX: N20.0 Calculus of kidney (principal)

== ENCOUNTER → 2019-05-06 10:25 | Outpatient (CLI) | payer MEDICARE, MEDICAID ==
[2019-04-21 10:39] VITALS: BMI 32.5
== END | disposition home or self-care (01) ==
LOC: D.LAB 10:25 → D.RAD 10:25
PROVIDERS: ATTEND Internal Medicine
DX: N20.0 Calculus of kidney (principal)

== ENCOUNTER → 2020-04-03 15:21 | Outpatient (CLI) | payer MEDICARE, MEDICAID ==
[2019-04-21 10:39] VITALS: BMI 32.5
== END | disposition home or self-care (01) ==
LOC: D.RT 03-21 14:00
PROVIDERS: ATTEND Family Medicine
DX: J44.9 Chronic obstructive pulmonary disease, unspecified (principal)